=== PATIENT | female | born 1970 | race Caucasian/White ===

== ENCOUNTER 2023-01-08 11:30 | Outpatient (RCR) | payer BC, SELFPAY ==
--- NOTE | 2022-11-29 10:47 | HP.OTEVAL_ITS ---
Patient's Visit Information Visit Information Visit Information: GLORIA DOWNING is a 52 year old F, referred to Occupational Therapy by Dr. 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 Date of Evaluation: 11/27/22 Occupational Therapist: MEGHNA Ortiz/Sy, CHT Subjective Subjective: This 52 year old female was seen for OT eval with dx of OA left CMC. pt states sx was performed 3 weeks and 6 days s/p CMC arthroplasty. pt arrives with cast on today after having pin removed this date in need of custom orthosis to provide protection and support while structures are healing. pt arrives with spouse. pt works for the [employer] currently off work ADLs Dressing: Coat, Pants, Socks and Shoes Fasteners: Tie shoes, Buttons and Zippers Eating: Use silverware and Cut food Kitchen: Chop with knife, Peel fruits & vegetables, Open jars and Open bottle caps Comments: pt spouse is assisting with all ADLs and IADLs at this time. Pain left hand: Current Pain Intensity: 0 Pain Intensity Range: 1 ROM Wrist: right 75/65 left 30/15 CMC: right 30 will test later date MP: right 40 will test later date IP: right 80 will test later date Radial Abduction: right 40 will test later date Opposition: Kapandji opposition scale right 10 left NT ROM Comments: ROM of digits of left hand pt demo full composite fist Strength Software Systems Architect: right 53# left NT Lateral Pinch: right 6# left NT Tripod Pinch: right 12# left NT Strength Comments: left will be tested at later date Sensation Sensation Comments: denies Quick DASH-Disab of Arm,Shoulder& Hand Quick DASH Score: 81.6650 Goals Goal:100% adherence to protocol: Yes Comment: Goal:Daily scar massage when approriate: Yes Goal:Software Systems Architect/Pinch strength at least 75% of unaffected hand: Yes Comment: do not strengthen until week 10 s/p Goal:No pain with affected hand use: Yes Goal:PIP Circumferences equal to unaffected hand: Yes Goal:Full use of affected hand in daily activities including work: Yes Goal:Decrease scar hypersensitivity: Yes Rehabilitation General Assessment: pt arrives 3 weeks and 6 days s/p from left cmc arthroplasty with MPJ stabilization. Pt arrives in need of custom orthosis to provide protection and support while reconstruction is healing. pt with pin removed prior to this session. Pt denies pain. this therapist mt. custom orthosis to provide protection and support- therapist ed. on orthosis use at all times off for wrist ROM ex and hygiene only. pt demo understanding and aggress to POC. Rehabilitation Potential: Good Anticipated Interventions Anticipated Interventions: A/AAROM/PROM, Strengthening, Scar Care, Modalities, Orthoses, Joint Protection/Energy Conservation, Ergonomic Education, Fine Motor Coord/Pa, Education re Diagnosis, Caregiver Training and Home Program Visit Plan Frequency: 1-2x /Week Duration: 2 Months General Plan: s/p week 4 begin wrist ROM ex. Fabricate thumb spica orthosis ( keep IP free) wrist position at 15* ext. maintain N radioulnar deviation place thumb in comfort position of about 40-45* palmar abduction - keep fingers free. edema mtg finger ROM S/P Week 6 remove pin removal orthosis re-form so MCP joint is held in 20* to 30* flexion initiate ROM of MCPJ Prevent MPJ extension and avoid stretching thumb into abduction ( may need oval 8 orthosis) S/P Week 8 wean MCP J from thumb spica orthosis mt. orthosis hand based to hold MCP J in 20* flexion S/P Week 10 Light isometric strengthening ex. 2x day within pain aleksandar. practive gripping around objects of various circumferences in various position with orthosis on for MCP joint in place S/P Week 12 use hand based orthosis only for high demand activities S/P Week 16 discontinue all use of orthosis if MCP J is stable at 0* or greater in resting position (NO Hyperextension) TEXT: Thank you for the opportunity to evaluate your patient. For Medicare and Medicare HMO plans, please review the plan of care and approve it. It will need to be FAXED BACK to us at [phone] for Medicare purposes. Please let me know if there are questions or concerns regarding this plan of care. Physician Signature: Date:
--- NOTE | 2023-01-04 15:40 | OTREVAL_ITS ---
Re-Evaluation Intro: Dr. Harvey Banda, DO, It has been my pleasure to treat GLORIA DOWNING over the last 6 visits for left unilateral primary osteoarthritis 1st cmc joint.. Please see the progress note below for an update on the occupational therapy plan of care! Subjective Subjective: Pt arrives 9 weeks and two days S/P left cmc arthroplasty with volar plate repair. Pt states she is doing OK. Pt using comfort cool orthosis when lifting. Pt denies pain with movement. Pt sees Sunday, January 08, 2023. Objective Objective/Function: Pt has been seen for 6 skilled OT visits. Pt progressing well see measurements below. Pt has been instructed in shoulder and elbow strengthening exercises with light weights. Pt instructed in isometric exercises and wrist flexion stretches to progress her wrist ROM. Pt would benefit from further skilled OT for 1-2x a week for 2 weeks to continue with metal building assembler and pinch strength to increase pts ind, with ADLs and IADLs. Thumb MP -10 /45 Prior - IP -4/75 Prior - L wrist ROM Current 50/45 Prior 45/45 CMC flex 25 CMC RA 30/50 PA 25/55 Call Center Operations Manager L Current 20# 19#; R 65# Later L Current 5# Prior 2#; R 10# Tripod L Current 3# Prior 1#; R 7# therapy session was directly supervised and doc. approved by Kristy COFFMAN/Sy,CHT Plan Plan Frequency: 1-2x /Week Duration: 2 Months Plan: obtaining a comfort cool brace for L hand Dr Brady guidelines Goals Goals Patient Goals: Regain Mobility, Regain Strength, Improve Fine Motor Skills, Use Hand/Wrist/Arm Normally Again and Be More Independent in ADLS Goal:100% adherence to protocol: Yes Goal:Daily scar massage when approriate: Yes Goal:Call Center Operations Manager/Pinch strength at least 75% of unaffected hand: Yes Goal:No pain with affected hand use: Yes Goal:PIP Circumferences equal to unaffected hand: Yes Goal:Full use of affected hand in daily activities including work: Yes Goal:Decrease scar hypersensitivity: Yes Anticipated Interventions Anticipated Interventions Anticipated Interventions: A/AAROM/PROM, Strengthening, Scar Care, Modalities, Orthoses, Joint Protection/Energy Conservation, Ergonomic Education, Fine Motor Coord/Pa, Education re Diagnosis, Caregiver Training and Home Program Re-Evaluation Ending Re-evaluation ending: Please do not hesitate to contact me at [phone] by phone or if you have questions or concerns regarding this new plan of care! Sincerely, Kristy Reyna, OTR/L, CHT
--- NOTE | 2023-05-16 07:50 | HP.OT.NRP ---
Patient Information Patient Information: GLORIA DOWNING was seen in my office for initial evaluation on 11/27/22. The following Plan of Care was established for this patient: POC Established Initial Frequency: 1-2x /Week Initial Duration: 2 Months Plan: obtaining a comfort cool brace for L hand Dr Brady guidelines General Plan: s/p week 4 begin wrist ROM ex. Fabricate thumb spica orthosis ( keep IP free) wrist position at 15* ext. maintain N radioulnar deviation place thumb in comfort position of about 40-45* palmar abduction - keep fingers free. edema mtg finger ROM S/P Week 6 remove pin removal orthosis re-form so MCP joint is held in 20* to 30* flexion initiate ROM of MCPJ Prevent MPJ extension and avoid stretching thumb into abduction ( may need oval 8 orthosis) S/P Week 8 wean MCP J from thumb spica orthosis mt. orthosis hand based to hold MCP J in 20* flexion S/P Week 10 Light isometric strengthening ex. 2x day within pain aleksandar. practive gripping around objects of various circumferences in various position with orthosis on for MCP joint in place S/P Week 12 use hand based orthosis only for high demand activities S/P Week 16 discontinue all use of orthosis if MCP J is stable at 0* or greater in resting position (NO Hyperextension) Anticipated Interventions Anticipated Interventions: A/AAROM/PROM, Strengthening, Scar Care, Modalities, Orthoses, Joint Protection/Energy Conservation, Ergonomic Education, Fine Motor Coord/Pa, Education re Diagnosis, Caregiver Training and Home Program Other Interventions: General Plan: s/p week 4 begin wrist ROM ex. Fabricate thumb spica orthosis ( keep IP free) wrist position at 15* ext. maintain N radioulnar deviation place thumb in comfort position of about 40-45* palmar abduction - keep fingers free. edema mtg finger ROM S/P Week 6 remove pin removal orthosis re-form so MCP joint is held in 20* to 30* flexion initiate ROM of MCPJ Prevent MPJ extension and avoid stretching thumb into abduction ( may need oval 8 orthosis) S/P Week 8 wean MCP J from thumb spica orthosis mt. orthosis hand based to hold MCP J in 20* flexion S/P Week 10 Light isometric strengthening ex. 2x day within pain aleksandar. practive gripping around objects of various circumferences in various position with orthosis on for MCP joint in place S/P Week 12 use hand based orthosis only for high demand activities S/P Week 16 discontinue all use of orthosis if MCP J is stable at 0* or greater in resting position (NO Hyperextension) Last Seen Last Seen: This patient was last seen in our office 01/08/23. Pertinent comments regarding their Occupational therapy will appear below: pt was seen for 7 OT sessions. At this time no further apts have been scheduled. Due to time lapse in services pt is d.c. At this point I will be discontinuing this patient from occupational therapy. I would be happy to see this patient again in the future if found appropriate by the physician. Thank you! Kristy Reyna, OTR/L, CHT
== END 2023-01-08 19:00 | disposition home or self-care (01) ==
LOC: OT 11:30
PROVIDERS: Referring Provider Orthopaedic Surgery; Visit Provider Orthopaedic Surgery
DX: M18.12 Unilateral primary osteoarthritis of first carpometacarpal joint, left hand (principal); M25.342 Other instability, left hand
CPT/HCPCS: 97110; 97140; 97166; 97530; 97760